=== PATIENT | male | born 1960 | race Caucasian/White ===

== ENCOUNTER 2017-11-18 07:50 | Day surgery (SDC) | payer BC, OTHER ==
[2017-11-15 14:38] VITALS: BMI 21.5
[2017-11-18] MEDS ORDERED: PROPOFOL 20 ML ONE ×4 (07:53→09:46)
[2017-11-18] MEDS ORDERED: LIDOCAINE HCL/PF 2% SDV 5ML VIAL ONE (07:53)
[2017-11-18 08:08] VITALS: TEMP 98.4
[2017-11-18 10:39] VITALS: BP 121/56; PULSE 64
== END 2017-11-18 10:40 | disposition home or self-care (01) ==
LOC: FASU-ENDO 07:50
PROVIDERS: ATTEND Internal Medicine Gastroenterology
PROC: 0DJD8ZZ Inspection of Lower Intestinal Tract, Via Natural or Artificial Opening Endoscopic (ICD-10-PCS; principal; 2017-11-18 09:43)
DX: Z12.11 Encounter for screening for malignant neoplasm of colon (principal); Z80.0 Family history of malignant neoplasm of digestive organs

== ENCOUNTER 2023-02-15 08:56 | Day surgery (SDC) | payer OTHER ==
[2023-02-11 11:25] VITALS: BMI 21.7
[2023-02-15 09:17] VITALS: TEMP 97.6
[2023-02-15 10:57] VITALS: RESP 18
[2023-02-15 10:58] VITALS: BP 110/69; PULSE 61
== END 2023-02-15 11:00 | disposition home or self-care (01) ==
LOC: FASU-ENDO 08:56
PROVIDERS: ATTEND Internal Medicine Gastroenterology
PROC: 0DJD8ZZ Inspection of Lower Intestinal Tract, Via Natural or Artificial Opening Endoscopic (ICD-10-PCS; principal; 2023-02-15 10:00)
DX: Z12.11 Encounter for screening for malignant neoplasm of colon (principal); Z83.71 Family history of colonic polyps